=== PATIENT | male | born 1980 | race Two or more races ===

== ENCOUNTER 2016-09-06 14:45 | Emergency (ER) | payer OTHER ==
[~2016-09-06] VITALS: Ht 172.7 cm; Wt 113.4 kg
[2016-09-06 14:55] VITALS: BP 129/91
[2016-09-06] MEDS ORDERED: DIPHTH,PERTUSS(ACELL),TET TOX 0.5 ML DISP.SYRIN. VAX IM ONE (15:30)
[2016-09-06] MEDS ORDERED: LIDOCAINE 1% / SOD BICARB 8.4% 20 ML VIAL. IJ ONE (15:30)
--- NOTE | 2016-09-06 15:30 | PHYS DOC ---
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 He states that he's had this for a long time. He does state he's had to have it drained once before. He states that within the last few days become red warm swollen and very tender. He denies any drainage coming from the site. He is unsure when his last tetanus immunization occurred. Review of Systems Review of Systems Constitutional: Denies fever or chills [] Eyes: Denies change in visual acuity, redness, or eye pain [] HENT: Denies nasal congestion or sore throat [] Respiratory: Denies cough or shortness of breath [] Cardiovascular: No additional information not addressed in HPI [] GI: Denies abdominal pain, nausea, vomiting, bloody stools or diarrhea [] : Denies dysuria or hematuria [] Musculoskeletal: Denies back pain or joint pain [] Integument: Denies rash or skin lesions. C/o cyst to the left ear lobe Neurologic: Denies headache, focal weakness or sensory changes [] Endocrine: Denies polyuria or polydipsia [] Current Medications Current Medications Current Medications Medications (Trade) Dose Ordered Sig/Cordell Start Time Stop Time Status Last Admin Dose Admin Diphtheria/ Tetanus/Acell Pertussis (Boostrix) 0.5 ml ONCE ONCE 09/06/16 15:30 09/06/16 15:36 DC 09/06/16 15:30 0.5 ML Lidocaine/Sodium Bicarbonate (Buffered Lidocaine 1%) 20 ml 1X ONCE 09/06/16 15:30 09/06/16 15:36 DC 09/06/16 15:35 20 ML Allergies Allergies Allergies Coded Allergies Type Severity Reaction Last Updated Verified No Known Drug Allergies 09/06/16 No Physical Exam Physical Exam Constitutional: Well developed, well nourished, no acute distress, non-toxic appearance. [] HENT: Normocephalic, atraumatic, bilateral external ears normal, oropharynx moist, no oral exudates, nose normal. [] Eyes: PERRLA, EOMI, conjunctiva normal, no discharge. [] Neck: Normal range of motion, no tenderness, supple, no stridor. [] Cardiovascular:Heart rate regular rhythm, no murmur [] Lungs & Thorax: Bilateral breath sounds clear to auscultation [] Skin: Warm, dry, no erythema, no rash. Left earlobe appears to be very swollen very tender red. It is indurated. Back: No tenderness, Extremities: No tenderness, no cyanosis, no clubbing, ROM intact, no edema. [] Neurologic: Alert and oriented X 3, normal motor function, normal sensory function, no focal deficits noted. [] Psychologic: Affect normal, judgement normal, mood normal. [] Current Patient Data Vital Signs Vital Signs Date Time Temp Pulse Resp B/P (MAP) Pulse Ox O2 Delivery O2 Flow Rate FiO2 09/06/16 14:55 98.5 74 20 94 Room Air 98.5 EKG EKG [] Radiology/Procedures Radiology/Procedures [] Course & Med Decision Making Course & Med Decision Making Pertinent Labs and Imaging studies reviewed. (See chart for details) Keep the area clean and dry. Use warm moist packs 20 minutes a time 4-5 times a day. Medication as prescribed. Tylenol or Ibuprofen for pain and discomfort. Followup with PCP in 3-5 days. Signs and symptoms to return to emergency department has been provided. Patient agrees with discharge instructions treatment regimen and followup recommendations. [] Dragon Disclaimer Dragon Disclaimer This electronic medical record was generated, in whole or in part, using a voice recognition dictation system. Departure Departure Impression: Primary Impression: Abscess Disposition: 01 HOME, SELF-CARE Condition: STABLE Patient Instructions: Abscess, [id number], Incision and Drainage, Care After Additional Instructions: You have been treated for an abscess with incision and drainage completed. Keep the area clean and dry Clean the site with soap water Place warm moist packs over the area 20 minutes a time 4-5 times a day Medication as prescribed Tylenol or Ibuprofen for pain and discomfort Followup with primary care provider in 3-5 days Return to emergency department as needed for signs and symptoms that become worse. Scripts Doxycycline Hyclate (DOXYCYCLINE HYCLATE) 100 Mg Capsule 1 CAP PO BID, #20 CAP Prov: JAMARCUS ALVAREZ Mei [employer] 09/06/16 Incision and Drainage Incision and Drainage : Site: left ear lobe Blade Size: 11 I & D Procedure: betadine prep, sterile drapes applied Progress Site was cleaned with betadine with 1% lidocaine buffered 2 ml injected to the area. Sterile drapes was placed. Lanced with #11 blade with thick yellow drainage noted from the site. JAMARCUS ALVAREZ APRN September 06, 2016 15:30
[2016-09-06] MEDS ORDERED: DOXY100C2 PO (15:59)
== END 2016-09-06 16:00 | disposition home or self-care (01) ==
LOC: ER 14:45
DX: H60.02 Abscess of left external ear (principal)
CPT/HCPCS: 69000; 69020; 90471; 90715; 99283-25